=== PATIENT | female | born 1995 | race Caucasian/White ===

== ENCOUNTER 2017-11-12 22:10 | Emergency (ER) | payer OTHER ==
[2017-11-12] MEDS ORDERED: DEXAMETHASONE SOD PHOS INJ 10 MG/1 ML VIAL IM ONE (23:19)
--- NOTE | 2017-11-12 23:21 | ER Document Report ---
HPI - HPI Patient complains to provider of: sore throat, ear pain, congestion Pain Level: 5 Context: Patient is a 22-year-old female that comes emergency department for chief complaint of sore throat. She states she has had a sore throat for 3 days, she also has mild congestion and ear pain especially on the right. She denies fever , difficulty swallowing, shortness of breath, vomiting. She was placed on erythromycin 3 days ago, states it has not helped. LMP within the past month. - EENT EENT: REPORTS: Sore Throat, Ear Pain Past Medical History - General Information source: Patient - Social History Smoking Status: Never Smoker Frequency of alcohol use: None Drug Abuse: None Lives with: Family Family History: Reviewed & Not Pertinent Patient has suicidal ideation: No Patient has homicidal ideation: No - Medical History Medical History: Negative Renal/ Medical History: Denies: Hx Peritoneal Dialysis Surgical Hx: Negative - Immunizations Immunizations up to date: Yes Hx Diphtheria, Pertussis, Tetanus Vaccination: Yes Vertical Provider Document - CONSTITUTIONAL General Appearance: WD/WN, No Apparent Distress - INFECTION CONTROL TRAVEL OUTSIDE OF THE [place] IN LAST 30 DAYS: No - HEENT HEENT: Atraumatic, Normocephalic. negative: Normal ENT Exam - Erythematous tonsils with tonsillar hypertrophy, no exudates, no uvular edema, no evidence of airway compromise. No peritonsillar abscess. Erythematous right tympanic membrane with loss of landmarks but no purulent effusion. Mild maxillary sinus tenderness. Mild nasal congestion. Otherwise normal ENT exam. - NECK Neck: negative: Normal Inspection - Very mild bilateral anterior cervical adenopathy - RESPIRATORY Respiratory: Breath Sounds Normal, No Respiratory Distress O2 Sat by Pulse Oximetry: 100 - CARDIOVASCULAR Cardiovascular: Regular Rate, Regular Rhythm - GI/ABDOMEN Gastrointestinal: Abdomen Soft, Abdomen Non-Tender, No Organomegaly - BACK Back: Normal Inspection - NEURO Level of Consciousness: Awake, Alert, Appropriate - DERM Integumentary: Warm, Dry, No Rash Course - Re-evaluation Re-evalutation: Patient with evidence of right-sided otitis media, mild congestion, sinus tenderness, she does have enlarged tonsils without exudates, she has mild anterior cervical adenopathy. She reports that she also did get tested for strep and was negative. Discussed with patient. She declines being tested again, states she gets repeated strep with the same symptoms every time, requests amoxicillin. Also given dexamethasone. Advised that this is likely a virus but with her developing otitis media, sinus tenderness, agreed to treat with amoxicillin. Discussed follow-up and return precautions. Patient states understanding and agreement. - Vital Signs Vital signs: Temp Pulse Resp BP Pulse Ox 98.7 F 84 16 124/82 100 11/12/17 22:13 11/12/17 22:13 11/12/17 22:13 11/12/17 22:13 11/12/17 22:13 Discharge - Discharge Clinical Impression: Tonsillitis, Ear pain, right Pharyngitis Qualifiers: Pharyngitis/tonsillitis etiology: unspecified etiology Qualified Code(s): J02.9 - Acute pharyngitis, unspecified Condition: Stable Disposition: HOME, SELF-CARE Additional Instructions: Take amoxicillin as prescribed. You have been given a dose of dexamethasone. For discomfort and also take decongestants, antihistamines, ibuprofen, or other remedies. Stay hydrated. Rest. Follow-up with primary care. Return if you worsen including difficulty breathing, swallowing, or any other concerning symptoms. Prescriptions: Amoxicillin Trihydrate [Amoxil 875 mg Tablet] 1 tab PO BID #20 tablet
[2017-11-12 23:52] VITALS: BP 115/67
== END 2017-11-12 23:50 | disposition home or self-care (01) ==
LOC: ER 22:10
DX: J03.90 Acute tonsillitis, unspecified (principal); H92.01 Otalgia, right ear
CPT/HCPCS: 99282; 96372; J1100

== ENCOUNTER 2018-11-27 21:20 | Emergency (ER) | payer OTHER ==
--- NOTE | 2018-11-27 21:57 | RADIOLOGY REPORT (SQ) ---
EXAM DESCRIPTION: XR HAND 3 OR MORE VIEWS COMPLETED DATE/TME: 11/27/2018 21:26 CLINICAL HISTORY: 23 years, Female, pain Findings: Vertebral body heights are intact. Alignment is intact. Soft tissues are unremarkable. IMPRESSION: No evidence for acute fracture.
[2018-11-27] MEDS ORDERED: IBUPROFEN 800 MG TABLET PO ONE (23:09)
--- NOTE | 2018-11-27 23:09 | ER Document Report ---
HPI - HPI Patient complains to provider of: Right hand injury Pain Level: 4 Context: Complaining of right index and right middle finger pain. Patient states she was re-rocking weights at the weight room when they fell onto her right index finger and right middle finger. Patient states she has had increased pain ever since which is why she presents to the emergency department for x-rays. Patient states her last tetanus immunization was within the last 3 years. Past medical history: None Medications: None Allergies: Keflex, shellfish - CONSTITUTIONAL Constitutional: DENIES: Fever, Chills - REPRODUCTIVE Reproductive: DENIES: : - MUSCULOSKELETAL Musculoskeletal: REPORTS: Extremity pain - rt hand injury <SHOAIB SAUCEDA - Last Filed: 11/28/18 01:48> <ANTHONY DE LA ROSA - Last Filed: 11/30/18 08:33> - HPI Time Seen by Provider: 11/27/18 23:01 Past Medical History - General Information source: Patient - Social History Smoking Status: Never Smoker Chew tobacco use (# tins/day): No Frequency of alcohol use: Rare Drug Abuse: None Family History: Reviewed & Not Pertinent Patient has suicidal ideation: No Patient has homicidal ideation: No Renal/ Medical History: Denies: Hx Peritoneal Dialysis Past Surgical History: Reports: Hx Orthopedic Surgery - left knee surgery - Immunizations Immunizations up to date: Yes Hx Diphtheria, Pertussis, Tetanus Vaccination: Yes <SHOAIB SAUCEDA - Last Filed: 11/28/18 01:48> Vertical Provider Document - CONSTITUTIONAL Agree With Documented VS: Yes Notes: GENERAL: Alert, interacts well. No acute distress. HEAD: Normocephalic, atraumatic. EYES: Pupils equal, round, and reactive to light. Extraocular movements intact. ENT: Oral mucosa moist, tongue midline. NECK: Full range of motion. Supple. Trachea midline. LUNGS: Clear to auscultation bilaterally, no wheezes, rales, or rhonchi. No respiratory distress. HEART: Regular rate and rhythm. No murmur ABDOMEN: Soft, non-tender. Non-distended. Bowel sounds present in all 4 azeem drants. EXTREMITIES: Moves all 4 extremities spontaneously. No edema, normal radial and dorsalis pedis pulses bilaterally. Minor ecchymosis and very superficial skin abrasions noted to posterior aspect of patient's right index and middle finger. Patient is able to abduct and abduct all 5 fingers on the right hand against resistance. Patient is able to make a very loose fist with pain. b no snuffbox tenderness noted BACK: no cervical, thoracic, lumbar midline tenderness. No saddle anesthesia, normal distal neurovascular exam. NEUROLOGICAL: Alert and oriented x3. Normal speech. cranial nerves II through XII grossly intact PSYCH: Normal affect, normal mood. SKIN: Warm, dry, normal turgor. - INFECTION CONTROL TRAVEL OUTSIDE OF THE [place] IN LAST 30 DAYS: No <SHOAIB SAUCEDA - Last Filed: 11/28/18 01:48> Course - Re-evaluation Re-evalutation: 11/27/18 23:07 Patient's x-ray reveals no signs of fractures. Discussed use of Tylenol Motrin, ice at home. Discussed following up with primary care provider return to the emergency room for any other concerning symptoms 11/27/18 23:08 This medical record was dictated with voice recognizing software. There may be grammatical, syntax errors that are unintended. - Vital Signs Vital signs: Temp Pulse Resp BP Pulse Ox 98.6 F 68 16 107/72 97 11/27/18 21:27 11/27/18 21:27 11/27/18 21:27 11/27/18 21:27 11/27/18 21:27 <SHOAIB SAUCEDA - Last Filed: 11/28/18 01:48> - Vital Signs Vital signs: Temp Pulse Resp BP Pulse Ox 98.7 F 82 18 102/76 100 11/27/18 23:26 11/27/18 23:26 11/27/18 23:26 11/27/18 23:26 11/27/18 23:26 <ANTHONY DE LA ROSA - Last Filed: 11/30/18 08:33> Discharge <SHOAIB SAUCEDA - Last Filed: 11/28/18 01:48> <ANTHONY DE LA ROSA - Last Filed: 11/30/18 08:33> - Discharge Clinical Impression: Finger injury Qualifiers: Encounter type: initial encounter Laterality: right Qualified Code(s): S69.91XA - Unspecified injury of right wrist, hand and finger(s), initial encounter Condition: Stable Disposition: HOME, SELF-CARE Instructions: Sprained Finger ([facility]) Additional Instructions: As we discussed you have been seen and treated in the emergency department for an injury to your right index and right middle finger. Your x-rays revealed no signs of fractures at this time. Please follow-up with your primary care provider in the next 24-48 hours. Please take [id number] Tylenol and Motrin for pain and apply ice to the area. Please return to the emergency room for any other concerning symptoms. Cosign for MLP Consult
[2018-11-27 23:28] VITALS: BP 102/76
== END 2018-11-27 23:30 | disposition home or self-care (01) ==
LOC: ER 21:20
DX: S60.021A Contusion of right index finger without damage to nail, initial encounter (principal); S60.031A Contusion of right middle finger without damage to nail, initial encounter; M79.644 Pain in right finger(s); W20.8XXA Other cause of strike by thrown, projected or falling object, initial encounter; Y93.89 Activity, other specified; Z88.1 Allergy status to other antibiotic agents; Z91.013 Allergy to seafood
CPT/HCPCS: 99283